=== PATIENT | male | born 1970 | race Two or more races ===

== ENCOUNTER 2017-03-28 15:10 | Emergency (ER) | payer OTHER ==
[2017-03-28 15:15] VITALS: BP 131/90; PULSE 76; RESP 16; TEMP 98.1; O2SAT 96
--- NOTE | 2017-03-28 16:05 | EDPHY ---
H & P Smoking Status: Never smoked Time Seen by Provider: 03/28/17 15:56 HPI/ROS: CHIEF COMPLAINT: Finger laceration HISTORY OF PRESENT ILLNESS: 46-year-old male with up-to-date tetanus arrives via private vehicle after she sustained accidental laceration to right 2nd digit radial aspect at the MCP when it ran up against a piece of sharp plastic. No fragments or foreign body sensation. No paresthesia. No sensory or motor deficit. PHYSICAL EXAM (Prior to examination, patient consented to physical exam, hands were washed and my usual and customary physical exam procedures followed) 1) GENERAL: Well-developed, well-nourished, alert and oriented. Appears to be in no acute distress. 2) HEAD: Normocephalic 3) HEENT: sclera anicteric 4) LUNGS: Breathing comfortably. 5) SKIN: 2.5 cm well-demarcated superficial laceration right 2nd digit radial aspect lateral to the 2nd MCP 6) MUSCULOSKELETAL: . Flexor and extensor function independently tested at the MCP PIP D IP in no deficits appreciated 7) NEUROLOGIC: Two-point discrimination and full sensation distally (Fahad,D Esmer) Constitutional: Initial Vital Signs Temperature (C) 36.7 C 03/28/17 15:13 Heart Rate 76 03/28/17 15:13 Respiratory Rate 16 03/28/17 15:13 Blood Pressure 131/90 H 03/28/17 15:13 O2 Sat (%) 96 03/28/17 15:13 O2 Delivery Mode Room Air Allergies/Adverse Reactions: No Allergies [NKDA] Allergy (Verified 03/28/17 15:12) Home Medications: Medication Instructions Recorded NK [No Known Home Meds] 03/28/17 MDM/Departure - MDM Procedures: Procedure: Laceration repair. I explained the indications, risks and benefits for both laceration repair and anesthetic administration. Verbal consent was obtained from the patient . The laceration on the right hand was anesthetized using 0.5% bupivicaine without epinephrine . After anesthetic administered the patient was observed for a period of time and had no apparent adverse effects. The wound was cleaned, prepped, draped in normal sterile fashion and explored to its base. No foreign body seen, no foreign bodies palpated. There were no deep structures involved. No tendon injury was identified. The wound was repaired with 5 simple interrupted 5 O Prolene sutures. The wound repair was simple. The procedure was performed by myself. Patient has been informed that scarring will occur, although efforts have been made to minimize this. (Ernesto Vásquez) ED Course/Re-evaluation: The patient was evaluated and managed by the Physician Help Desk Technician/ Nurse Practitioner. My co-signature indicates that I have reviewed this chart and I agree with the findings and plan of care as documented. I am the secondary supervising physician. (Zaynab Case) - Depart Disposition: Home, Routine, Self-Care Clinical Impression: Laceration of right index finger Qualifiers: Encounter type: initial encounter Damage to nail status: without damage Foreign body presence: without foreign body Qualified Code(s): S61.210A - Laceration without foreign body of right index finger without damage to nail, initial encounter Condition: Good Instructions: Laceration (ED) Additional Instructions: Return to the ER if you develop redness, swelling, discharge, warmth to the wound, red streaks going up your arm , or any other symptoms that concern you. Referrals: Return, to the ER in 10 days for suture removal [Other] - As per Instructions
== END 2017-03-28 16:14 | disposition home or self-care (01) ==
PROC: 0HQFXZZ Repair Right Hand Skin, External Approach (ICD-10-PCS; principal; 2017-03-28)
DX: S61.210A Laceration without foreign body of right index finger without damage to nail, initial encounter (principal); W26.8XXA Contact with other sharp object(s), not elsewhere classified, initial encounter